=== PATIENT | female | born 1980 | race Caucasian/White ===

== ENCOUNTER 2017-11-11 23:06 | Emergency (ER) | payer OTHER ==
[2017-11-11 23:25] VITALS: BP 119/89; PULSE 78; TEMP 97.9; BMI 25.8
[2017-11-12] MEDS ORDERED: morphine CARPU-JECT 4 MG/1 ML DISP.SYRIN IVPUSH ONE (00:19)
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
[2017-11-12] MEDS ORDERED: DIPHTH,PERTUSS(ACELL),TET 0.5 ML DISP.SYRIN IM ONE (00:23)
[2017-11-12] MEDS ORDERED: MORPHINE SULFATE 10 MG/1 ML *VIAL ONE (00:46)
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
[2017-11-12] MEDS ORDERED: KETOROLAC TROMETHAMINE 15 MG/ML VIAL IVPUSH ONE (02:27)
== END 2017-11-12 04:48 | disposition home or self-care (01) ==
LOC: JER 23:06
PROC: 3E0234Z Introduction of Serum, Toxoid and Vaccine into Muscle, Percutaneous Approach (ICD-10-PCS; principal; 2017-11-11)
PROC: 3E033NZ Introduction of Analgesics, Hypnotics, Sedatives into Peripheral Vein, Percutaneous Approach (ICD-10-PCS; 2017-11-11)
PROC: 3E0333Z Introduction of Anti-inflammatory into Peripheral Vein, Percutaneous Approach (ICD-10-PCS; 2017-11-11)
PROC: 0HQ1XZZ Repair Face Skin, External Approach (ICD-10-PCS; 2017-11-11)
DX: F10.120 Alcohol abuse with intoxication, uncomplicated (principal); S01.81XA Laceration without foreign body of other part of head, initial encounter; S09.8XXA Other specified injuries of head, initial encounter; W18.39XA Other fall on same level, initial encounter; Y93.89 Activity, other specified; Y92.480 Sidewalk as the place of occurrence of the external cause; Y99.8 Other external cause status
CPT/HCPCS: 36415; 70450-TC; 72125-TC; 73110-TC-LR-FY; 73130-TC-LT; 80307; 84703; 90715; 99281-25

== ENCOUNTER 2018-06-14 13:56 | Emergency (ER) | payer OTHER ==
[2018-06-14 14:07] VITALS: BP 116/72; PULSE 54; TEMP 97.9; BMI 28.2
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
== END 2018-06-14 14:34 | disposition home or self-care (01) ==
LOC: FER 13:56
DX: M54.2 Cervicalgia (principal); V43.52XA Car driver injured in collision with other type car in traffic accident, initial encounter; Y93.89 Activity, other specified; Y92.410 Unspecified street and highway as the place of occurrence of the external cause
CPT/HCPCS: 99282-25

== ENCOUNTER 2021-06-05 08:44 | Emergency (ER) | payer OTHER ==
[2021-06-05] MEDS ORDERED: ACETAMINOPHEN 1000 MG/100 ML VIAL (NON FORMULARY) IVPB ONE (09:26)
[2021-06-05] MEDS ORDERED: ONDANSETRON 4 MG/2 ML VIAL IVPUSH ONE (09:26)
[2021-06-05] MEDS ORDERED: SODIUM CHLORIDE 0.9% 500 ML INFUS.BAG IV ONE (09:27)
[2021-06-05] MEDS ORDERED: ACETAMINOPHEN INJECTION 100 ML IVPB ONE (09:30)
[2021-06-05] MEDS ORDERED: ONDANSETRON 4 MG/2 ML VIAL ONE (09:30)
[2021-06-05 09:40] VITALS: TEMP 98; BMI 31.9
[2021-06-05 10:19] LABS: BASO % 0.9 % (0-2.0); EOS % 0.3 % (0-4.5); HEMATOCRIT 41.9 % (32.4-45.2); HEMOGLOBIN 14.2 GM/dL (10.7-15.3); LYMPH % 11.7 % (8-40); MCH 29.1 pg (25.7-33.7); MCHC 33.8 g/dl (32.0-36.0); MEAN CELL VOLUME 86.2 fl (80-96); MONO % 3.1 % (3.8-10.2); PLATELET COUNT 303 10^3/uL (134-434); RBC 4.87 M/mm3 (3.60-5.2); RDW 14.1 % (11.6-15.6); WHITE BLOOD COUNT 13.3 K/mm3 (4.0-10.0)
[2021-06-05 10:38] LABS: BLOOD UREA NITROGEN 11.6 mg/dL (7-18); CALCIUM 8.8 mg/dL (8.5-10.1)
[2021-06-05] MEDS ORDERED: MAG HYDROX/AL HYDROX/SIMETH 30 ML UNIT-DOSE CUP PO ONE (11:31)
[2021-06-05] MEDS ORDERED: FAMOTIDINE 20 MG/50 ML IVPB 20 MG/50 ML MG IVPB ONE ×2 (11:31→11:33)
[2021-06-05] MEDS ORDERED: MAG HYDROX/AL HYDROX/SIMETH 30 ML UNIT-DOSE CUP ONE (11:33)
[2021-06-05 11:57] LABS: CREATININE 0.8 mg/dL (0.55-1.3); TOT PROT 8.5 g/dl (6.4-8.2)
[2021-06-05 12:29] VITALS: BP 104/62; PULSE 73
== END 2021-06-05 12:42 | disposition home or self-care (01) ==
LOC: JER 08:44
PROC: 3E033GC Introduction of Other Therapeutic Substance into Peripheral Vein, Percutaneous Approach (ICD-10-PCS; principal; 2021-06-05)
DX: T50.901A Poisoning by unspecified drugs, medicaments and biological substances, accidental (unintentional), initial encounter (principal); J18.9 Pneumonia, unspecified organism
CPT/HCPCS: 36415; 70450-TC; 71045-TC-FY; 80053; 84703; 85025; 93005; 93010; 99285-25; J0131

== ENCOUNTER 2021-06-29 16:52 | Emergency (ER) | payer OTHER ==
[2021-06-29 17:08] VITALS: BP 118/52; PULSE 84; TEMP 98; BMI 32.3
[2021-06-29] MEDS ORDERED: IBUPROFEN 600 MG TABLET (FP) PO ONE ×2 (17:11→17:12)
== END 2021-06-29 18:18 | disposition home or self-care (01) ==
LOC: FER 16:52
DX: S61.213A Laceration without foreign body of left middle finger without damage to nail, initial encounter (principal); W27.4XXA Contact with kitchen utensil, initial encounter; W29.8XXA Contact with other powered hand tools and household machinery, initial encounter
CPT/HCPCS: 99283-25